=== PATIENT | female | born 1950 | race Caucasian/White ===

== ENCOUNTER 2021-10-09 13:28 | Outpatient (CLI) | payer MEDICARE, OTHER ==
[2021-10-10 12:54] LABS: SARS-CoV-2 PCR by NAA Not Detected (NotDetected)
== END 2021-10-09 13:29 | disposition home or self-care (01) ==
LOC: CSHLAB 13:28
PROVIDERS: ATTEND Internal Medicine
DX: Z20.822 Contact with and (suspected) exposure to COVID-19 (principal)
CPT/HCPCS: U0003; U0005

== ENCOUNTER 2021-10-14 09:40 | Outpatient (CLI) | payer MEDICARE, OTHER | END 2021-10-14 09:41 | disposition home or self-care (01) | LOC: CSHRAD 09:40 | PROVIDERS: ATTEND Internal Medicine | DX: R13.10 Dysphagia, unspecified (principal); K21.9 Gastro-esophageal reflux disease without esophagitis | CPT/HCPCS: 74220 ==

== ENCOUNTER 2022-07-06 21:48 | Inpatient (IN) | payer MEDICARE ==
[2022-07-06] MEDS ORDERED: Metoprolol Tartrate 5 MG/5 ML VIAL ONE (22:35)
[2022-07-06 22:45] LABS: #Basophils 0.1 10x3/uL (0.0-0.2); #Eosinphils 0.3 10x3/uL (0.0-0.5); #Monocytes 0.8 10x3/uL (0.0-1.1); #Neutrophils 8.5 10x3/uL (1.5-8.4); %Basophils 0.7 % (0.0-2.0); %Eosinophils 1.7 % (0.0-6.0); %Lymphocytes 32.9 % (18.0-47.0); %Monocytes 5.8 % (0.0-10.0); %Neutrophils 58.6 % (40.0-75.0); Hemoglobin 13.6 g/dL (12.0-15.5); Mean Corpuscular HGB CONC 33.3 g/dL (32.0-36.0); Mean Corpuscular Hemoglobin 31.3 pg (27.0-33.0); Mean Corpuscular Volume 93.8 fl (81.6-98.3); Platelet Count 379 10x3/uL (150-450); RBC Distribution Width 14.6 % (11.5-14.5); Red Blood Cell (RBC) Count 4.35 10x6/uL (3.90-5.03); White Blood Cell (WBC) Count 14.5 10x3/uL (3.5-10.5)
[2022-07-06 23:00] LABS: ALT (SGPT) 31 U/L (8-55); AST (SGOT) 30 U/L (5-34); Albumin 4.5 g/dL (3.4-4.8); Alkaline Phosphatase 124 U/L (40-110); Anion Gap 16 mmol/L (10-20); BUN (Urea Nitrogen) 23 mg/dL (9.8-20.1); Bilirubin, Total 0.4 mg/dL (0.2-1.2); Calc. Creatinine Clearance 0 mL/min (70-130); Carbon Dioxide 24 mmol/L (23-31); Chloride 108 mmol/L (98-107); Estimated GFR 49; Globulin 2.2 g/dL (2.4-3.5); Glucose 129 mg/dL (83-110); Magnesium 2.4 mg/dL (1.6-2.6); Potassium 5.1 mmol/L (3.5-5.1); Protein, Total 6.7 g/dL (5.8-8.1); Sodium 143 mmol/L (136-145)
[2022-07-06] MEDS ORDERED: Diltiazem 125 MG in Sodium Chloride 0.9% 100 ML IVPB SCH (23:45)
[2022-07-07 00:38] LABS: SARS-CoV-2 NAA Rapid Test Not Detected (NotDetected)
[2022-07-07] MEDS ORDERED: Senokot S 8.6-50 MG TAB PO PRN (01:29)
[2022-07-07] MEDS ORDERED: Calcium Carbonate 500 MG ChewTAB PO PRN (01:29)
[2022-07-07] MEDS ORDERED: Guaifenesin DM 100-10/5 ML UDCUP PO PRN (01:29)
[2022-07-07] MEDS ORDERED: Acetaminophen 325 MG TAB PO PRN (01:29)
[2022-07-07] MEDS ORDERED: Ondansetron PF 4 MG/2 ML Vial IVP PRN (01:29)
[2022-07-07] MEDS ORDERED: Diltiazem 125 MG in Sodium Chloride 0.9% 100 ML IVPB SCH (01:45)
[2022-07-07] MEDS ORDERED: Sodium Chloride 0.45% 1,000 ML IV SCH (01:45)
[2022-07-07] MEDS ORDERED: Enoxaparin Sodium 80 MG/0.8 ML SYRINGE SC SCH (01:45)
[2022-07-07 02:57] LABS: Troponin I 0.016 ng/mL (< 0.028)
[2022-07-07] MEDS ORDERED: Enoxaparin Sodium 80 MG/0.8 ML SYRINGE ONE (03:00)
[2022-07-07] MEDS ORDERED: Atropine Sulfate 1 mg/10 ml Syringe ONE (05:57)
[2022-07-07 06:29] LABS: Anion Gap 16 mmol/L (10-20); Calc. Creatinine Clearance 0 mL/min (70-130); Carbon Dioxide 22 mmol/L (23-31); Chloride 110 mmol/L (98-107); Estimated GFR 58; Potassium 4.9 mmol/L (3.5-5.1); Sodium 143 mmol/L (136-145)
[2022-07-07 06:30] LABS: BUN (Urea Nitrogen) 20 mg/dL (9.8-20.1)
[2022-07-07 06:31] LABS: Calcium 9.7 mg/dL (7.8-10.44); Glucose 98 mg/dL (83-110)
[2022-07-07] MEDS ORDERED: Apixaban 5 MG TAB ONE (09:00)
[2022-07-07] MEDS ORDERED: Apixaban 5 MG TAB PO SCH (09:00)
[2022-07-07] MEDS ORDERED: Allopurinol 300 MG TAB PO SCH (09:00)
[2022-07-07] MEDS ORDERED: Ubidecarenone 50 MG CAP PO SCH (09:00)
[2022-07-07 09:48] LABS: #Basophils 0.1 10x3/uL (0.0-0.2); #Eosinphils 0.2 10x3/uL (0.0-0.5); #Monocytes 0.5 10x3/uL (0.0-1.1); #Neutrophils 5.5 10x3/uL (1.5-8.4); %Basophils 0.8 % (0.0-2.0); %Eosinophils 2.3 % (0.0-6.0); %Lymphocytes 31.3 % (18.0-47.0); %Neutrophils 60.3 % (40.0-75.0); Hemoglobin 13.4 g/dL (12.0-15.5); Mean Corpuscular HGB CONC 33.8 g/dL (32.0-36.0); Mean Corpuscular Hemoglobin 32.1 pg (27.0-33.0); Mean Platelet Volume 9.8 fl (7.4-10.4); Platelet Count 375 10x3/uL (150-450); RBC Distribution Width 14.8 % (11.5-14.5); Red Blood Cell (RBC) Count 4.17 10x6/uL (3.90-5.03); White Blood Cell (WBC) Count 9.1 10x3/uL (3.5-10.5)
[2022-07-07] MEDS ORDERED: Rosuvastatin 10 MG TAB PO SCH (21:00)
== END 2022-07-07 14:05 | disposition home or self-care (01) | DRG 309 ==
LOC: CSHERS 21:48 → CSHERHOLD 07-07 06:07
PROVIDERS: ADMIT Student in an Organized Health Care Education/Training Program; ATTEND Family Medicine
DX: I48.0 Paroxysmal atrial fibrillation (principal); N17.9 Acute kidney failure, unspecified; R65.10 Systemic inflammatory response syndrome (SIRS) of non-infectious origin without acute organ dysfunction; E78.5 Hyperlipidemia, unspecified; Z20.822 Contact with and (suspected) exposure to COVID-19; M10.9 Gout, unspecified; I12.9 Hypertensive chronic kidney disease with stage 1 through stage 4 chronic kidney disease, or unspecified chronic kidney disease; N18.30 Chronic kidney disease, stage 3 unspecified; M19.90 Unspecified osteoarthritis, unspecified site; I44.7 Left bundle-branch block, unspecified; Z96.652 Presence of left artificial knee joint; G47.33 Obstructive sleep apnea (adult) (pediatric); K21.9 Gastro-esophageal reflux disease without esophagitis; Z79.899 Other long term (current) drug therapy; Z88.1 Allergy status to other antibiotic agents; Z88.8 Allergy status to other drugs, medicaments and biological substances; Z88.6 Allergy status to analgesic agent; Z91.013 Allergy to seafood; Z87.440 Personal history of urinary (tract) infections; Z79.01 Long term (current) use of anticoagulants; Z98.49 Cataract extraction status, unspecified eye; Z90.710 Acquired absence of both cervix and uterus; Z90.49 Acquired absence of other specified parts of digestive tract; Z82.49 Family history of ischemic heart disease and other diseases of the circulatory system; Z83.3 Family history of diabetes mellitus; Z87.891 Personal history of nicotine dependence; Z98.51 Tubal ligation status; Z79.82 Long term (current) use of aspirin
CPT/HCPCS: 36415; 71045; 80048; 80053; 83735; 84443; 84484; 85025; 93005; 93010; J0461; J1650; J3490; U0002

== ENCOUNTER 2022-09-30 13:01 | Outpatient (CLI) | payer MEDICARE | END 2022-09-30 13:02 | disposition home or self-care (01) | LOC: CSHMAMMO 13:01 | PROVIDERS: ATTEND Internal Medicine | DX: Z12.31 Encounter for screening mammogram for malignant neoplasm of breast (principal); Z80.3 Family history of malignant neoplasm of breast | CPT/HCPCS: 77063; 77067 ==

== ENCOUNTER 2023-10-18 14:35 | Outpatient (CLI) | payer MEDICARE, OTHER | END 2023-10-18 14:36 | disposition home or self-care (01) | LOC: CSHMAMMO 14:35 | PROVIDERS: ATTEND Internal Medicine | DX: Z12.31 Encounter for screening mammogram for malignant neoplasm of breast (principal); Z80.3 Family history of malignant neoplasm of breast | CPT/HCPCS: 77063; 77067 ==

== ENCOUNTER 2024-08-23 06:47 | Emergency (ER) | payer MEDICARE, OTHER ==
[2024-08-24 01:30] LABS: Anion Gap 14 mmol/L (10-20); BUN (Urea Nitrogen) 18 mg/dL (9.8-20.1); Calc. Creatinine Clearance 0 mL/min (70-130); Calcium 10.2 mg/dL (7.8-10.44); Carbon Dioxide 23 mmol/L (23-31); Chloride 108 mmol/L (98-107); Estimated GFR 55; Glucose 114 mg/dL (83-110); Sodium 141 mmol/L (136-145)
== END 2024-08-23 06:51 | disposition home or self-care (01) ==
LOC: CSHERS 06:47
DX: I48.0 Paroxysmal atrial fibrillation (principal); I10 Essential (primary) hypertension; K21.9 Gastro-esophageal reflux disease without esophagitis; Z79.899 Other long term (current) drug therapy; Z79.01 Long term (current) use of anticoagulants
CPT/HCPCS: 80048; 83735; 93005; 93010; 96374

== ENCOUNTER 2024-10-04 06:34 | Emergency (ER) | payer MEDICARE, OTHER ==
[2024-10-04] MEDS ORDERED: Metoprolol Tartrate 5 MG (5 mL) VIAL ONE (06:50)
[2024-10-04 06:54] LABS: #Basophils 0.05 10x3/uL (0.0-0.2); #Eosinophils 0.31 10x3/uL (0.0-0.5); #Monocytes 0.61 10x3/uL (0.0-1.1); #Neutrophils 5.01 10x3/uL (1.5-8.4); %Basophils 0.5 % (0.0-2.0); %Neutrophils 49.3 % (40.0-75.0); Hematocrit 41.9 % (34.9-44.5); Hemoglobin 13.6 g/dL (12.0-15.5); Mean Corpuscular HGB CONC 32.5 g/dL (32.0-36.0); Mean Corpuscular Hemoglobin 30.2 pg (27.0-33.0); Mean Corpuscular Volume 93.1 fL (81.6-98.3); Mean Platelet Volume 9.9 fL (7.4-10.4); Platelet Count 335 10x3/uL (150-450); RBC Distribution Width 14.7 % (11.5-14.5); White Blood Cell (WBC) Count 10.17 10x3/uL (3.5-10.5)
[2024-10-04 07:17] LABS: Bilirubin, Total 0.7 mg/dL (0.2-1.2); Calcium 9.2 mg/dL (7.8-10.44); Chloride 110 mmol/L (98-107); Potassium 3.8 mmol/L (3.5-5.1); Sodium 144 mmol/L (136-145)
[2024-10-04 07:22] LABS: Troponin I 0.014 ng/mL (< 0.028)
[2024-10-04 07:34] LABS: ALT (SGPT) 48 U/L (8-55); AST (SGOT) 42 U/L (5-34); Albumin 4.1 g/dL (3.4-4.8); Alkaline Phosphatase 100 U/L (40-110); Anion Gap 15 mmol/L (10-20); BUN (Urea Nitrogen) 11 mg/dL (9.8-20.1); Calc. Creatinine Clearance 0 mL/min (70-130); Carbon Dioxide 23 mmol/L (23-31); Estimated GFR 55; Globulin 2.3 g/dL (2.4-3.5); Glucose 108 mg/dL (83-110); Protein, Total 6.4 g/dL (5.8-8.1)
[2024-10-04 08:31] LABS: Magnesium 2.1 mg/dL (1.6-2.6)
[2024-10-04 14:28] LABS: T4 7.96 ug/dL (4.87-11.72)
== END 2024-10-04 10:49 | disposition home or self-care (01) ==
LOC: CSHERS 06:34
DX: I48.0 Paroxysmal atrial fibrillation (principal); R00.2 Palpitations; I12.9 Hypertensive chronic kidney disease with stage 1 through stage 4 chronic kidney disease, or unspecified chronic kidney disease; N18.9 Chronic kidney disease, unspecified; E78.5 Hyperlipidemia, unspecified; Z79.01 Long term (current) use of anticoagulants; Z79.899 Other long term (current) drug therapy
CPT/HCPCS: 71045; 80053; 83735; 83880; 84436; 84439; 84443; 84481; 84484; 85025; 93005; 94760; 96374

== ENCOUNTER 2024-10-19 13:19 | Outpatient (CLI) | payer MEDICARE, OTHER | END 2024-10-19 13:20 | disposition home or self-care (01) | LOC: CSHMAMMO 13:19 | PROVIDERS: ATTEND Internal Medicine | DX: Z12.31 Encounter for screening mammogram for malignant neoplasm of breast (principal); Z80.3 Family history of malignant neoplasm of breast | CPT/HCPCS: 77063; 77067 ==